=== PATIENT | male | born 1980 | race Caucasian/White ===

== ENCOUNTER → 2024-06-02 11:36 | Outpatient (REF) | payer BC, SELFPAY ==
[2024-06-02 13:05] LABS: % Basophils 0.8 % (0-2); % Eosinophils 1.3 % (0-6); % Immature Granulocytes 0.4 % (0-0.5); % Monocytes 11.3 % (1.7-9.3); % Neutrophils 54.2 % (42.2-75.2); Absolute Eosinophils 0.1 10^3/uL (0-0.7); Absolute Lymphocytes 1.5 10^3/uL (1.2-3.4); Absolute Monocytes 0.5 10^3/uL (0.1-0.6); Absolute Neutrophils 2.6 10^3/uL (1.4-6.5); Hematocrit 43.3 % (39.0-52.0); Hemoglobin 14.8 g/dL (13.0-18.0); Mean Corp Hgb Conc. 34.2 g/dL (33.0-37.0); Mean Corpuscular Hgb 29.7 pg (27.0-31.0); Mean Corpuscular Volume 86.8 fL (80.0-94.0); Mean Platelet Volume 10.7 fL (7.4-10.4); Nucleated Red Blood Cells % 0 % (-); Platelet Count 167 10^3/uL (130-400); Red Blood Cell Count 4.99 10^6/uL (4.70-6.10); Red Cell Dist. Width 12.6 % (11.5-14.5); White Blood Cell Count 4.8 10^3/uL (4.8-10.8)
[2024-06-02 13:45] LABS: ALT (SGPT) 33 U/L (0-50); AST (SGOT) 33 U/L (17-59); Albumin 4.7 g/dl (3.5-5.0); Alkaline Phosphatase 50 U/L (38-126); Blood Urea Nitrogen 13 mg/dl (9-20); Calcium 9.3 mg/dl (8.4-10.2); Carbon Dioxide 26 mmol/L (22-30); Chloride 98 mmol/L (98-107); Glucose 93 mg/dl (70-99); HDL Cholesterol 50 mg/dl; LDL Cholesterol, Calculated 134 mg/dl; Potassium 4.2 mmol/L (3.5-5.1); Sodium 135 mmol/L (135-145); Total Bilirubin 0.8 mg/dl (0.2-1.3); Total Cholesterol 202 mg/dl (50-199); Total Protein 7.6 g/dl (6.3-8.2); Triglyceride 92 mg/dl (10-149); Very Low Density Lipoprotein 18 mg/dl (0-30); eGFR > 60.00
== END ==
LOC: REG 11:36
PROVIDERS: ATTENDING PHYSICIAN Family Medicine
DX: Z00.00 Encounter for general adult medical examination without abnormal findings (principal)
CPT/HCPCS: 36415; 80053; 80061; 85025

== ENCOUNTER 2024-07-09 06:35 | Day surgery (SDC) | payer BC, SELFPAY | END 2024-07-09 08:45 | disposition home or self-care (01) | LOC: GI 06:35 | PROVIDERS: ATTENDING PHYSICIAN Student in an Organized Health Care Education/Training Program | DX: Z12.11 Encounter for screening for malignant neoplasm of colon (principal); K57.30 Diverticulosis of large intestine without perforation or abscess without bleeding; K64.0 First degree hemorrhoids; K63.5 Polyp of colon; K62.1 Rectal polyp | CPT/HCPCS: 45380; 88305 ==

== ENCOUNTER → 2025-05-23 09:52 | Outpatient (REF) | payer BC, SELFPAY ==
[2025-05-23 10:53] LABS: Hematocrit 46.1 % (39.0-52.0); Hemoglobin 15.3 g/dL (13.0-18.0); Mean Corp Hgb Conc. 33.2 g/dL (33.0-37.0); Mean Corpuscular Volume 85.8 fL (80.0-94.0); Nucleated Red Blood Cells % 0 % (-); Platelet Count 194 10^3/uL (130-400); Red Cell Dist. Width 12.2 % (11.5-14.5)
[2025-05-23 13:45] LABS: ALT (SGPT) 41 U/L (0-50); AST (SGOT) 33 U/L (17-59); Albumin 5.0 g/dl (3.5-5.0); Alkaline Phosphatase 63 U/L (38-126); Blood Urea Nitrogen 13 mg/dl (9-20); Calcium 9.7 mg/dl (8.4-10.2); Carbon Dioxide 26 mmol/L (22-30); Chloride 100 mmol/L (98-107); Glucose 91 mg/dl (70-99); HDL Cholesterol 51 mg/dl; LDL Cholesterol, Calculated 145 mg/dl; Potassium 4.4 mmol/L (3.5-5.1); Sodium 136 mmol/L (135-145); Total Protein 8.2 g/dl (6.3-8.2); Very Low Density Lipoprotein 14 mg/dl (0-30); eGFR > 60.00
== END ==
LOC: REG 09:52
PROVIDERS: ATTENDING PHYSICIAN Family Medicine
DX: Z00.00 Encounter for general adult medical examination without abnormal findings (principal)
CPT/HCPCS: 36415; 80053; 80061; 85025

== ENCOUNTER 2025-06-02 07:21 | Inpatient (IN) | payer BC, SELFPAY ==
[2025-06-02] VITALS (13 sets, daily range): BP systolic 116–136; BP diastolic 70–93; PULSE 74; BMI 28.6; BMI 27.3
[2025-06-02 00:51] LABS: Hematocrit 42.3 % (39.0-52.0); Hemoglobin 14.4 g/dL (13.0-18.0); Mean Corp Hgb Conc. 34.0 g/dL (33.0-37.0); Mean Corpuscular Volume 85.8 fL (80.0-94.0); Nucleated Red Blood Cells % 0 % (-); Platelet Count 190 10^3/uL (130-400); Red Cell Dist. Width 12.1 % (11.5-14.5)
[2025-06-02 01:13] LABS: ALT (SGPT) 34 U/L (0-50); AST (SGOT) 27 U/L (17-59); Albumin 4.5 g/dl (3.5-5.0); Alkaline Phosphatase 66 U/L (38-126); Blood Urea Nitrogen 16 mg/dl (9-20); Calcium 9.0 mg/dl (8.4-10.2); Carbon Dioxide 23 mmol/L (22-30); Chloride 104 mmol/L (98-107); Glucose 97 mg/dl (70-99); Potassium 3.8 mmol/L (3.5-5.1); Sodium 136 mmol/L (135-145); Total Protein 7.7 g/dl (6.3-8.2); eGFR > 60.00
[2025-06-02 01:24] LABS: Troponin I < 0.012 ng/ml
--- NOTE | 2025-06-02 05:59 | ED.GENMED ---
History of Present Illness
General
Chief Complaint: Breathing Problem
Source: patient and spouse
Time Seen by Provider: 06/02/25 03:23
History of Present Illness
History of Present Illness:
Note:
CHIEF COMPLAINT(S)
Right-sided chest pain and shortness of breath.
HISTORY OF PRESENT ILLNESS
The patient is a 44-year-old male with a past medical history significant for pulmonary embolism, presenting with a chief complaint of right-sided chest pain and shortness of breath. The patient describes the pain as a dry feeling that worsens with
inspiration or expiration and is located on the right side of the chest. The pain started in the mid-afternoon and persisted, intensifying when the patient attempted to lie down. The patient reports that the pain is different from the sharp,
stabbing pain experienced during previous pulmonary embolism episodes. He describes it as muscular-skeletal and feels tenderness when moving or reaching the arm.
The patient denies any recent injury or physical exertion and reports no history of swelling in the legs, although he notes minor swelling previously. He is not on any blood thinners presently but was on them for six months following a prior
pulmonary embolism. He has a history of hypertension for which he is taking amlodipine.
Additional diagnostic workup includes a chest X-ray performed earlier, which was unremarkable except for the noted chest pain. An electrocardiogram and cardiac enzyme tests showed normal results, and vital signs were stable with normal oxygen
saturation. A computed tomography scan of the chest is planned to rule out pulmonary embolism and assess other potential causes like pneumonia, pneumothorax, or pleuritic pain.
PAST MEDICAL AND SURGICAL HISTORY
- Pulmonary embolism
- Hypertension
- Obstructive sleep apnea (recently discontinued CPAP therapy)
EXTERNAL RECORDS REVIEWED
- Recent chest X-ray
- Electrocardiogram
- Cardiac enzyme tests
SOCIAL DETERMINANTS AFFECTING HEALTH
The patient has experienced significant sleep disruption due to obstructive sleep apnea.
MEDICATIONS
Amlodipine for hypertension
REVIEW OF SYSTEMS
- Respiratory: Shortness of breath, right-sided chest pain aggravated by breathing
PHYSICAL EXAM
General: Alert, no acute distress.
Skin: Warm, dry; no visible rashes.
Head: Normocephalic, atraumatic.
Neck: Supple, trachea midline.
Eyes, Ears, Nose, Mouth, and Throat: Oral mucosa moist.
Cardiovascular: Normal peripheral perfusion, heart rate regular, no edema.
Respiratory: Respirations are non-labored with clear lung auscultation.
Gastrointestinal: Abdomen nondistended.
Back: Normal range of motion, Normal alignment.
Musculoskeletal: Normal range of motion, normal strength. Tenderness noted in right chest wall with movement.
Neurological: Alert and oriented to person, place, time, and situation, no focal neurological deficit observed.
Psychiatric: Cooperative, appropriate mood & affect.
PROBLEM LIST
- Acute right-sided chest pain
- Shortness of breath
- History of Pulmonary embolism
PLAN
- Perform computed tomography scan of the chest to evaluate for pulmonary embolism and other potential causes such as pneumonia or pneumothorax.
- Continue monitoring vital signs and oxygen saturation.
- Review results of imaging and laboratory studies to guide further management.
DIFFERENTIAL DIAGNOSIS
The Differential Diagnosis includes, in no particular order and is not limited to:
1. Recurrent pulmonary embolism
2. Pleurisy
3. Pneumothorax
4. Musculoskeletal pain (costochondritis)
5. Pneumonia
6. Myocardial infarction
7. Angina
8. Heart failure
9. Pericarditis
10. Anxiety-related chest pain
Disposition:
SUMMARY OF ENCOUNTER
The patient is a 44-year-old male with a history of pulmonary embolism presenting to the emergency department with right-sided chest pain and mild shortness of breath. Laboratory tests including CBC, CMP, and troponin were normal, and an EKG showed
no acute ischemic changes. However, a chest CT scan revealed bilateral pulmonary emboli with mild right heart strain and a moderate clot burden. Despite appearing hemodynamically stable, given the clot burden, immediate anticoagulation with IV
heparin was initiated. A hospital stay is warranted for further management and monitoring.
DISPOSITION
Admit
EMERGENCY TREATMENTS ADMINISTERED
IV heparin was administered to manage the pulmonary emboli.
MANAGEMENT OF THE PATIENTS CARE WAS DISCUSSED WITH
Consultation with the hospitalist team was conducted for admission and further management.
PLAN
Initiate IV heparin therapy to manage the pulmonary emboli. Admit to the hospital for continuous monitoring, management of clot burden, and to prevent potential complications.
INDEPENDENT REVIEW OF LABS AND INTERPRETATION OF TESTS
- My independent review of CBC is normal.
- My independent review of CMP is normal.
- My independent review of troponin is negative.
- My independent interpretation of the EKG shows no acute ischemic changes.
- My independent interpretation of the chest CT reveals bilateral pulmonary emboli with mild right heart strain and a moderate clot burden.
MEDICATION RECONCILIATION
IV heparin was administered for anticoagulation purposes.
MEDICAL DECISION MAKING
- Complexity of Data Reviewed: Chronic conditions affecting care include pulmonary embolism. Differential diagnosis considered: recurrent pulmonary embolism, pleurisy, pneumothorax, musculoskeletal pain (costochondritis), pneumonia, myocardial
infarction, angina, heart failure, pericarditis, anxiety-related chest pain.
- Data:
Category 1
- My independent interpretation of the chest CT indicates bilateral pulmonary emboli with mild right heart strain.
- My independent review of external records included CBC, CMP, and EKG results.
Category 3
- Discussion of management with the hospitalist team for patient admission and further care.
- Risk: Due to the detection of bilateral pulmonary emboli with moderate clot burden, there was a significant risk of complications, necessitating immediate IV heparin administration and hospital admission for further management.
DIAGNOSIS
- Acute bilateral pulmonary embolism with mild right heart strain � ICD-10: I26.99
Past History
Past History
ED Past Medical History: Other (Sleep apnea, pulmonary embolism)
ED Past Surgical History: None
Patient has exhibited threatening behavior?: No
Social History
Tobacco: Non-smoker
Alcohol: None
Drug: None
Phy Exam
Physical Exam
Physical Exam:
.
Scores
Heart Failure Risk
Heart Failure Risk Score: Not Applicable
Course
Orders/Labs/Results
Orders:
Orders
06/02/25 00:20
ECG [Electrocardiogram (*1)] Urgent
Reason for Study: Shortness of Breath
06/02/25 00:21
EKG- Treatment ONCE
06/02/25 00:36
Complete Blood Count/With Diff Urgent
Comprehensive Metabolic Panel Urgent
Troponin I Urgent
06/02/25 01:20
CR Chest - 2 Views Urgent
Comment:
Reason For Exam: shortness of breath
06/02/25 03:37
CT Chest PE Study Urgent
Comment:
Reason For Exam: R cp, h/o PE
06/02/25 06:00
Heparin 8,100 units IV NOW STA
Heparin 90404 Units/250 ml 25,000 units in 250 ml IV PER PROTOCOL
Weight to be used for heparin protocol in kilograms (kg):: 101
Protocol:: DVT/PE
PTT Goal Range to be used:: PTT 73 to 111 seconds
Order type:: Initial
INITIAL Infusion Dose (UNITS/KG/hr) & then follow protocol:: 18 units/kg/hr
Infusion Dose in UNITS/hr & then follow protocol (UNITS/hr):: 1,800
INFUSION RATE in mL/hr & then follow protocol (mL/hr):: 18
For DVT/PE algorithm, re-bolus for low PTT?: Yes
PTT less than or equal to 64 seconds:: Re-bolus 80 units/kg (max 10,000units). Increase by 400 units/hr
(+ 4mL/hr)
PTT 64.1 to 72.9 seconds:: Re-bolus 40 units/kg (max 5,000 units). Increase by 200 units/hr
(+ 2mL/hr)
PTT 73 to 111 seconds:: Target Range. No change in rate.
PTT 111.1 to 130.9 seconds:: Decrease rate by 200 units/hr (- 2 mL/hr)
PTT 131 to 199.9 seconds:: HOLD for 1 hr. Then decrease by 300 units/hr (- 3mL/hr)
PTT greater than or equal to 200 seconds:: HOLD for 2 hrs & Notify Provider. Then decrease by 400 units/hr
(- 4mL/hr)
Lab follow-up:: Each change, PTT q6h until 2 consecutive are therapeutic. Then
PTT daily.
Nursing to Place Non Medication Order As Directed
Physician Order: PTT 6 hours after initial start of Heparin infusion
Above order entered?: Yes
06/02/25 06:04
Heparin 4,000 units IV PRN PRN
Heparin 8,100 units IV PRN PRN
06/02/25 06:14
PTT Urgent
Comment: Obtain baseline before beginning heparin infusion if not already collected
06/02/25 06:32
Ketorolac [Toradol] 15 mg IV NOW STA
06/02/25 12:15
PTT Urgent
Comment: heparin gtt
Abnormal Lab Results
06/02/25
00:36
Absolute Monos (auto) 0.8 H 10^3/uL
(0.1-0.6)
Immature Gran % 0.6 H %
(0-0.5)
Monocytes % 11.2 H %
(1.7-9.3)
06/02/25 00:36
06/02/25 00:36
Vital Signs
Initial and Last Documented VS:
Initial Vital Signs
Temp Pulse BP Pulse Ox
98.7 F 77 135/90 98
06/02/25 00:19 06/02/25 00:19 06/02/25 00:19 06/02/25 00:19
Last Documented Vital Signs
Temp Pulse Resp BP Pulse Ox
98.7 F 74 16 120/78 97
06/02/25 00:19 06/02/25 06:30 06/02/25 06:30 06/02/25 06:00 06/02/25 06:30
*Pulse Oximetry
SaO2: 97
Oxygen Mode of Delivery: Room air
Patient hypoxic: no
*Critical Care Note
Total Time (30-74mins, 75-104mins- exclusive of procedures): 35 min
Data Reviewed
Source: patient
ED Attending Note
-
Portions of this chart may have been created with voice recognition software.� Occasional wrong word or��sound alike� substitutions may have occurred due to the inherent limitations of voice recognition software.
Discharge Plan
Departure
Patient Disposition: Admit
Date of Disposition: 06/02/25
Time of Disposition: 05:59
Admit to: Telemetry
Presentation/result/management discussed w/ accepting MD/DO: Hospitalist
Discharge Problem:
Bilateral pulmonary embolism
Prescriptions:
No Action
No Current Medications
0
Referrals:
Abebe Jordan DO [Family Provider, Family Practice]
Interventions
Interventions:
*General Assessment Last Done: 06/02/25 00:21
*Neglect/Abuse Screening Last Done: 06/02/25 00:21
*ED COVID-19 Vaccine History Last Done: 06/02/25 03:39
*ED Influenza Vaccine History Last Done: 06/02/25 03:39
[facility] Fall Risk Assessment Tool Last Done: 06/02/25 03:39
*Risk Screen - Suicide (C-SSRS) Last Done: 06/02/25 00:21
ED- Cardiac Assessment Last Done: 06/02/25 03:39
ED- Pulmonary Assessment Last Done: 06/02/25 03:39
Discharge Date and Time
Print Language: KINYARWANDA
[2025-06-02] MEDS: HEPARIN 8100 UNITS IV (06:14)
[2025-06-02] MEDS: HEPARIN 25000 UNITS/250 ML IV ×2 (06:15→22:26)
[2025-06-02] MEDS: TORADOL 15 MG IV (06:38)
[2025-06-02 06:42] LABS: APTT 28.4 Sec (23.4-35.0)
--- NOTE | 2025-06-02 07:08 | HPS.HSE ---
Family Physician
-
Family Physician: Abebe Jordan
Chief Complaint
-
Chest Pain
History of Present Illness
Patient is a 44y M with PMH significant for hypertension and prior PE who presents to ED complaining of chest pain and SOB. Patient states that he developed R sided chest discomfort this afternoon. Pain was worse with deep breathing and became
significantly worse this evening when he lay down to sleep. Patient noted some SOB. He states that symptoms are similar to those he had with PE 3 years ago. He presented to the ED for further evaluation and CTA confirmed bilateral PEs.
Patient denies any recent travel, surgery or significant injury. His prior PE was attributed to COVID-19 infection which he had at the time. He states that he had hypercoagulable work-up done at that time which was unremarkable. He completed 6
months of Eliquis.
Patient does report some L foot pain over the past 3-4 days. He notes that he has been jogging / working out and his foot will bother him the following day./ Pain is mostly along the bottom / arch of the foot.
He went to Urgent Care early yesterday and had x-rays of the foot which were unremarkable.
Medical History
Past Medical History
Past Medical History: Reports Other
Additional Past Medical History:
Hypertension
Pulmonary Embolism
BRIELLE on CPAP
Past Surgical History: Reports Other
Additional Past Surgical History:
Septoplasty
Social History
Tobacco: Non-smoker
Alcohol: None
Drug: None
Family History
Family History: Other (Brother: Schizophrenia, Sudden attributed to asthma / pneumonia Mother: CJD, Bladder Cancer Father: Skin Cancer, BRIELLE)
Allergies / Home Medications
Allergies reflects when Allergies were last updated in [employer].
Home Medications with original date entered in [employer]
Allergy/Medication List:
Allergies
Allergy/AdvReac Type Severity Reaction Status Date / Time
prochlorperazine (From Allergy Mild Tongue Verified 03/07/22 22:01
Compazine) Swelling
Home Medications
amlodipine 5 mg-benazepril 10 mg capsule 1 cap PO DAILY 06/02/25
Review of Systems
-
History Source: Patient
A 12 point ROS was completed and negative except as noted: Yes
Constitutional: Denies Fever or Chills
Respiratory: Reports Trouble Breathing; Denies Cough
Cardiac: Reports Chest Pain; Denies Diaphoresis, Palpitations or Syncope
Abdomen/GI: Denies Abdominal Pain, Nausea, Vomiting or Diarrhea
: Denies Dysuria or Frequency
Musculoskeletal: Reports Joint Pain (L foot pain.); Denies Edema
Neurological: Denies Dizzy or Headache
Psych: Denies Depression or Anxiety
Physical Exam
Vital Signs
Vital Signs
Temp Pulse Resp BP Pulse Ox
98.7 F 75 33 120/78 97
06/02/25 00:19 06/02/25 06:45 06/02/25 06:45 06/02/25 06:00 06/02/25 06:45
Physical Exam
General: Other (44y M in no acute distress.)
HEENT: Moist mucous membranes and PERRLA
Respiratory: Other (Few coarse breath sounds at R base. Otherwise clear. No wheezing.)
Cardiac: S1/S2 and Regular Rhythm; No Murmur
GI: Soft, Non Tender, Non Distended and Normal Bowel Sounds
Musculoskeletal: No Clubbing, No Cyanosis and No Edema
Neuro: AO x 3
Laboratory Results
-
06/02/25 00:36
06/02/25 00:36
Laboratory Results
APTT 28.4 Sec (23.4-35.0) 06/02/25 06:14
Total Bilirubin 0.8 mg/dl (0.2-1.3) 06/02/25 00:36
AST 27 U/L (17-59) 06/02/25 00:36
ALT 34 U/L (0-50) 06/02/25 00:36
Alkaline Phosphatase 66 U/L (38-126) 06/02/25 00:36
Troponin I < 0.012 ng/ml 06/02/25 00:36
Impression/Plan
-
A/P: Patient is a 44y M with PMH significant for hypertension and prior PE who presents to ED complaining of chest pain and SOB.
Bilateral Pulmonary Emboli
RLL Pulmonary Infarct
- Admit for further evaluation and treatment.
- IV heparin x 24-48 hours.
- Check Echo.
- Supplemental O2 if needed.
- Pain control, supportive care.
- Check LE dopplers.
- Pulmonary evaluation for additional recommendations.
- Given prior history, patient will likely now require lifelong anticoagulation.
Benign Hypertension
- Hold amlodipine-benazepril acutely.
BRIELLE
- Stable. Continue nightly PAP therapy.
DVT Prophylaxis: On IV Heparin
Code Status: Full
--- NOTE | 2025-06-02 07:13 | W.PN.HOSP.TC ---
Addendum entered and electronically signed by Keila Cintron MD 06/03/25 09:33:
Essential HTN
-SBP high 130's this morning - OK to resume BP meds at home
Original Note:
Today's Communication/Plan
-
see a/p
Assessment / Plan
Assessment / Plan
Physical Exam
General: no acute distress, appears comfortable at this time.
HEENT: Moist mucous membranes and PERRLA
Respiratory: clear to auscultation b/l
Cardiac: S1/S2 and Regular Rhythm; No Murmur
GI: Soft, Non Tender, Non Distended and Normal Bowel Sounds
Musculoskeletal: No Clubbing, No Cyanosis and No Edema
Neuro: AO x 3 conversant coherent
Psych: Calm
A/P: Patient is a 44y M with PMH significant for hypertension and prior PE who presents to ED complaining of chest pain and SOB.
Bilateral Pulmonary Emboli
RLL Pulmonary Infarct
LLE DVT
Hepatosplenomegaly w/ hepatic steatosis as noted on CT
- cont hep gtt
- ECHO appreciated preserved EF 65% mild valve abn's
- stable respiratory status on room air
- Pain control
- Venous Duplex positive for LLE DVT
- Pulmonary Hematology eval
- Given prior history, patient will likely now require lifelong anticoagulation.
Benign Hypertension
- Hold amlodipine-benazepril acutely
- BP stable off
BRIELLE
- Stable. Continue nightly PAP therapy.
DVT Prophylaxis: On IV Heparin
Code Status: Full
I spent a total of 40 minutes with the patient or on the floor. More than 50% of this time involved counseling and coordination of care.
Anticipated Discharge: 24 - 48 hours
Subjective/Interval History
-
Date of Service: June 02, 2025
No acute distress, sitting up comfortably in bed. Overall stable respiratory status on room air.
Objective Data
-
Labs:
Laboratory Results
06/02/25 06/02/25 06/02/25
00:36 06:14 12:15
WBC 7.2
Hgb 14.4
Hct 42.3
Plt Count 190
APTT 28.4 Pending
Sodium 136
Potassium 3.8
Chloride 104
Carbon Dioxide 23
BUN 16
Creatinine 0.8
Glucose 97
Calcium 9.0
Total Bilirubin 0.8
AST 27
ALT 34
Alkaline Phosphatase 66
Vital Signs:
Vital Signs
Temp Pulse Resp BP Pulse Ox
98.7 F 78 20 136/91 96
06/02/25 00:19 06/02/25 07:00 06/02/25 07:00 06/02/25 07:00 06/02/25 07:00
--- NOTE | 2025-06-02 10:01 | CON.PUL ---
Consultation
Consultation Request
Date/Time Consultation Requested: 06/02/2025
Date/Time Consultation Performed: 06/02/2025
Requesting Provider: Dr. Ness
Performing Provider: Dr. Rasheed
Reason for Consultation: Acute PE
Medical History
-
Chief Complaint: SOB + chest pain
History of Present Illness:
44-year-old male with a past medical history of an acute PE (March 2022), BRIELLE on CPAP, and hypertension who presents with shortness of breath and pain during breathing. Patient has a history of a acute PE in March 2022, that was thought to be
provoked at the time from COVID-19. No DVT at that time. Sx started on the day of admission. he states the symptoms that he is having are similar to his prior PE in 2021. CTA chest confirmed bilateral pulmonary embolism with suspected right
lower lobe pulmonary infarct. Patient denies any recent travel, trauma or significant injury. He has had some left sided foot pain for the past 3-4 days. Patient had reportedly gone to urgent care 1 day [facility] and x-rays of his foot were reportedly
unremarkable. Patient started on heparin drip, admitted to the hospitalist service and pulmonary service now consulted for additional management/recommendations.
Past Medical History
Past Medical History: Other (see assessment)
Past Surgical History: Other (see assessment)
Social History
Tobacco: Non-smoker
Alcohol: None
Drug: None
Family History
Family History: Cancer (Mother: bladder cancer; Father: Skin cancer) and Other (Brother: Schizophrenia/asthma; Father: BRIELLE)
Allergies / Home Medications
Allergies
Allergy/AdvReac Type Severity Reaction Status Date / Time
prochlorperazine (From Allergy Mild Tongue Verified 03/07/22 22:01
Compazine) Swelling
Home Medications
�Medication �Instructions �Recorded �Confirmed �Last Taken �Type
amlodipine 5 mg-benazepril 10 mg 1 cap PO DAILY 06/02/25 06/02/25 06/01/25 History
capsule
Review of Systems
-
History Source: Patient
All other systems: Negative unless noted
Vitals / Labs / Diagnostic Testing
Vital Signs
Temp Pulse Resp BP Pulse Ox
98.7 F 78 20 136/91 96
06/02/25 00:19 06/02/25 07:00 06/02/25 07:00 06/02/25 07:00 06/02/25 07:00
Lab Data
06/02/25 00:36
06/02/25 00:36
Laboratory Results
06/02/25
06:14
APTT 28.4
Diagnostic Testing:
Physical Exam
-
HEENT: Normocephalic and Anicteric
Cardiovascular: S1/S2 and Peripheral Edema (n)
Respiratory: Wheeze (n), Rales ( right base), Rhonchi (n) and Non-Labored Respirations
GI: Soft, Non Distended and Non Tender
Neurology: Awake, Alert and Tremors (n)
Skin: Warm and Good Color
General: Respiratory Distress (n), Comfortable, Fever (n) and Chills (n)
Assessment
-
Assessment: 44-year-old male with a past medical history of an acute PE (March 2022), BRIELLE on CPAP, and hypertension who presents with shortness of breath and pain during breathing. Patient has a history of a acute PE in March 2022, that was
thought to be provoked at the time from COVID-19. No DVT at that time. Sx started on the day of admission. he states the symptoms that he is having are similar to his prior PE in 2021. CTA chest confirmed bilateral pulmonary embolism with
suspected right lower lobe pulmonary infarct. Patient denies any recent travel, trauma or significant injury. He has had some left sided foot pain for the past 3-4 days. Patient had reportedly gone to urgent care 1 day [facility] and x-rays of his foot
were reportedly unremarkable. Patient started on heparin drip, admitted to the hospitalist service and pulmonary service now consulted for additional management/recommendations.
Conditions present [facility]:
BRIELLE, dx at [facility] in 2007, then followed at [facility] afterwards, CPAP 6 cwp s O2, reports nightly compliance
COVID vaccinated and boosted (Pfizer, boost May 2021)
Breakthrough COVID illness (fever, cough sore throat, dyspnea) since 02-22, home positive test 02-23, started/completed nirmatrelvir/ritonavir (paxlovid) 5 d course with resolution of symptoms and negative home testing 5 days [facility]
Nasal septoplasty 2017
[place] teeth removal x4 at end of HS
LLNS
Pulmonary embolism (March 2022)
Impression:
#Acute submassive bilateral pulmonary embolism with RV strain
#Left lower extremity occlusive DVT involving posterior tibial vein
#BRIELLE on CPAP
#History of COVID-19
#History of acute PE (March 2022) s/p 3 months of AC � PE deemed provoked at the time in setting of COVID-19 infection
Plan:
- Continue with systemic parenteral anticoagulation with heparin drip
- Check echo
- Bedrest for the first 24 hours after being therapeutic on heparin drip
- Considering that this is the patient's second VTE event, believe that he will require lifelong anticoagulation
- Recommend outpatient hematology evaluation to discuss duration of AC needed + possible hypercoagulable workup
- Outpatient pulmonary office follow-up will be arranged for full PFTs -he already follows with us in the office, saw THANIA Bernabe in August 2023 for sleep apnea
- Maintain SpO2 >90-94%, using supplemental O2 as needed
- prn nebulized bronchodilators - patient not currently bronchospastic
- Replete electrolytes with K>4, Mg>2
- Maintain euglycemia with goal BG >100mg/dL and <180mg/dL
- Trend H/H and transfuse if needed to keep Hb >7-8g/dL; keep plt>10-20k, unless there is concern for bleeding then keep plt>50k
- Incentive spirometer encouraged 10x per hour for at least 4 hours a day
- DVT ppx
Pulmonary service will continue to follow along.
Total time spent today was 58 minute for this encounter. Time includes reviewing laboratory tests/imaging results, reviewing pertinent medical records, obtaining and reviewing medical history, performing an appropriate physical exam, ordering
medications, tests and procedures. Time also includes documentation of this encounter, coordinating patient care and communicating with other healthcare professionals. Total time does not include separately billed tests or procedures performed on
this date of service.
Data:
CTA chest 06/02/2025:
Findings compatible with multiple small bilateral segmental and subsegmental acute pulmonary emboli.
Straightening of the intraventricular septum which could represent a mild degree of right heart strain. Consider echocardiogram.
Patchy bilateral lower lobe opacities most likely representing subsegmental atelectasis. Cannot exclude developing right lower lobe pulmonary infarct.
Incompletely included on this study findings suggesting hepatosplenomegaly with hepatic steatosis.
Bilateral lower extremity duplex US 06/02/2025:
No evidence of deep venous thrombosis of the right lower extremity.
Occlusive acute thrombus in the left posterior tibial vein.
--- NOTE | 2025-06-02 12:59 | EDCM ---
Reviewed chart and met with pt bedside in ED. Lives with his in 1 story home, [address].
Independent in ADLs, personal care and ambulation at baseline. Has CPAP.
PMH includes Pulmonary embolism, HTN and Sleep apnea.
Currently on Heparin drip.
Confirms prescription coverage.
No hx HH or SNF
PCP: Abebe Jordan
Pharmacy: [facility]
Anticipate discharge home, no needs. CM will continue to follow.
[2025-06-02 13:45] LABS: APTT 188.7 Sec (23.4-35.0)
--- NOTE | 2025-06-02 14:47 | CON.ONC ---
Consultation
-
Date Consultation Requested: 06/02/25
Date Consultation Performed: 06/02/25
Requesting Provider: Dr. Dominick Ortiz
Performing Provider: Dr. Regina Rg
Reason for Consultation: pulmonary emboli
Impression
Impression
multiple small bilateral segmental and subsegmental acute pulmonary emboli
Occlusive acute thrombus in the left posterior tibial vein
homozygous MTHFR homozygous variant
Plan
Plan
Lifelong DOAC recommended
f/u echo
check B2 glycoprotein, anticardiolipin panel, and lupus anticoagulant to complete thrombophilia evaluation
check homocystine level, if elevated start folic acid
OP follow up will be arranged upon discharge
Patient History
History of Present Illness
42yo M who presented with chest pain and SOB. He reports acute onset right sided chest discomfort that started yesterday afternoon. He noted that symptoms were similar to his pulmonary emboli 3 years ago. The pain increased with lying down and with
deep breathing. His prior pulmonary was thought to be provoked by COVID. He completed 6 months of apixaban. His prior thrombophilia evaluation in 2021 was negative for factor VIII activity, FVL, antithrombin 3, protein S deficiency, protein C
deficiency, prothrombin gene, and anticardiolipin IgG. He did have a homozygous MTHFR homozygous variant. His admission CTA was diagnostic for multiple small bilateral segmental and subsegmental acute pulmonary emboli with possible RV strain. HIs LE
US was diagnostic for occlusive acute thrombus in the left posterior tibial vein. His CBC and CMP showed no significant abnormalities. He denies any provoking factors for VTE including prolonged immobility, airtravel, hormone use, surgery, or
injury. He denies any family hx of VTE. He has been admitted and started on a heparin gtt.
Afebrile, no hypoxia or hypotension.
Past-Medical/Surgical History
PMH HTN, pulmonary emboli, BRIELLE
PSH septoplasty
Social non smoker, denies significant ETOH, or recreational drug use.
Family mother bladder cancer, father skin cancer
Patient Medication
�Medication �Instructions �Recorded �Confirmed �Last Taken �Type
amlodipine 5 mg-benazepril 10 mg 1 cap PO DAILY 06/02/25 06/02/25 06/01/25 History
capsule
Active Medications
Generic Name Dose Route Start Last Admin
Trade Name Freq PRN Reason Stop Dose Admin
Acetaminophen 650 mg 06/02/25 14:28
Acetaminophen 325 Mg Tablet PO 06/30/25 14:27
Q4HPRN PRN
Mild Pain / Temp > 101
Heparin Sodium 8,100 units 06/02/25 06:04
Heparin 80 Units/Kg Iv Rebolus IV 06/30/25 06:03
PRN PRN
PTT < OR = 64 seconds
Heparin Sodium 4,000 units 06/02/25 06:04
Heparin 40 Units/Kg Iv Rebolus IV 06/30/25 06:03
PRN PRN
PTT = 64.1 to 72.9 seconds
Hydromorphone HCl 0.5 mg 06/02/25 14:28
Hydromorphone 0.5 Mg/0.5 Ml Syringe IV 06/16/25 14:27
Q4HPRN PRN
Severe Pain
Heparin Sodium 25,000 units in 250 mls @ 0 mls/hr 06/02/25 06:00 06/02/25 06:15
Heparin 23771 Units/250 Ml IV 250 mls
PER PROTOCOL TONYA Administration
Protocol
Per Protocol
Review of Systems
-
ROS is notable for HPI, otherwise negative
Physical Exam
-
General: No Apparent Distress
HEENT: Negative Jaundice
Pulmonary: Other (unlabored)
GI: Soft
Extremities: Pulses Present
Neurology: Non Focal
Skin: Warm
Psych: Calm
Labs
Lab Results
WBC 7.2 10^3/uL (4.8-10.8) 06/02/25 00:36
RBC 4.93 10^6/uL (4.70-6.10) 06/02/25 00:36
Hgb 14.4 g/dL (13.0-18.0) 06/02/25 00:36
Hct 42.3 % (39.0-52.0) 06/02/25 00:36
MCV 85.8 fL (80.0-94.0) 06/02/25 00:36
MCH 29.2 pg (27.0-31.0) 06/02/25:36
MCHC 34.0 g/dL (33.0-37.0) 06/02/25 00:36
RDW 12.1 % (11.5-14.5) 06/02/25 00:36
Plt Count 190 10^3/uL (130-400) 06/02/25:36
MPV 10.3 fL (7.4-10.4) 06/02/25 00:36
Abs Immat Gran (auto) 0.0 10^3/uL (0-0.05) 06/02/25:36
Absolute Neuts (auto) 4.4 10^3/uL (1.4-6.5) 06/02/25 00:36
Absolute Lymphs (auto) 1.8 10^3/uL (1.2-3.4) 06/02/25 00:36
Absolute Monos (auto) 0.8 10^3/uL (0.1-0.6) H 06/02/25 00:36
Absolute Eos (auto) 0.1 10^3/uL (0-0.7) 06/02/25 00:36
Absolute Basos (auto) 0.0 10^3/uL (0-0.2) 06/02/25 00:36
Immature Gran % 0.6 % (0-0.5) H 06/02/25 00:36
Neutrophils % 60.7 % (42.2-75.2) 06/02/25 00:36
Lymphocytes % 25.2 % (20.5-51.1) 06/02/25 00:36
Monocytes % 11.2 % (1.7-9.3) H 06/02/25 00:36
Eosinophils % 1.7 % (0-6) 06/02/25 00:36
Basophils % 0.6 % (0-2) 06/02/25 00:36
Creatinine 0.8 mg/dL (0.7-1.3) 06/02/25 00:36
Vital Signs
Vital Signs
Temp Pulse Resp BP Pulse Ox
98.4 F 85 14 120/81 96
06/02/25 14:42 06/02/25 14:42 06/02/25 14:42 06/02/25 14:42 06/02/25 14:45
[2025-06-02 15:45] LABS: COVID-19 Antigen Negative (Negative)
[2025-06-02] MEDS: TYLENOL 650 MG PO (18:41)
[2025-06-02 22:07] LABS: APTT 95.9 Sec (23.4-35.0)
[2025-06-03 03:00] VITALS: BP 111/73
[2025-06-03 04:34] VITALS: BMI 27.0
[2025-06-03 04:44] LABS: APTT 111.2 Sec (23.4-35.0); Hematocrit 42.0 % (39.0-52.0); Hemoglobin 14.2 g/dL (13.0-18.0); Mean Corp Hgb Conc. 33.8 g/dL (33.0-37.0); Mean Corpuscular Volume 86.4 fL (80.0-94.0); Nucleated Red Blood Cells % 0 % (-); Platelet Count 164 10^3/uL (130-400); Red Cell Dist. Width 12.0 % (11.5-14.5)
[2025-06-03 04:56] LABS: Blood Urea Nitrogen 12 mg/dl (9-20); Calcium 8.8 mg/dl (8.4-10.2); Carbon Dioxide 24 mmol/L (22-30); Chloride 107 mmol/L (98-107); Estimated Creatinine Clearance > 125 ml/min; Glucose 96 mg/dl (70-99); Potassium 4.1 mmol/L (3.5-5.1); Sodium 136 mmol/L (135-145); eGFR > 60.00
[2025-06-03 07:46] VITALS: BP 132/74
--- NOTE | 2025-06-03 09:08 | W.PN.HOSP.TC ---
Today's Communication/Plan
-
expect DC later today
Assessment / Plan
Assessment / Plan
Physical Exam
General: no acute distress, appears comfortable at this time.
HEENT: Moist mucous membranes and PERRLA
Respiratory: clear to auscultation b/l
Cardiac: S1/S2 and Regular Rhythm; No Murmur
GI: Soft, Non Tender, Non Distended and Normal Bowel Sounds
Musculoskeletal: No Clubbing, No Cyanosis and No Edema
Neuro: AO x 3 conversant coherent
Psych: Calm
A/P: Patient is a 44y M with PMH significant for hypertension and prior PE who presents to ED complaining of chest pain and SOB.
TTE
SUMMARY
1. Normal left ventricular size, wall thickness, and systolic function. EF 65%. No regional wall motion abnormality. Normal diastolic function.
2. Normal right ventricular size and function.
3. Mild mitral regurgitation.
4. Mild tricuspid regurgitation with estimated pulmonary artery pressure of 29 mmHg assuming a right atrial pressure of 8 mmHg.
5. When compared to prior study on 03/08/2022, IVC does not collapse but otherwise no significant changes.
Chest CT
IMPRESSION:
Findings compatible with multiple small bilateral segmental and subsegmental acute pulmonary emboli.
Straightening of the intraventricular septum which could represent a mild degree of right heart strain. Consider echocardiogram.
Patchy bilateral lower lobe opacities most likely representing subsegmental atelectasis. Cannot exclude developing right lower lobe pulmonary infarct.
Incompletely included on this study findings suggesting hepatosplenomegaly with hepatic steatosis.
LE US:
IMPRESSION: No evidence of deep venous thrombosis of the right lower extremity.
Occlusive acute thrombus in the left posterior tibial vein.
Bilateral Pulmonary Emboli
RLL Pulmonary Infarct
LLE DVT
Hepatosplenomegaly w/ hepatic steatosis as noted on CT
- Venous Duplex positive for LLE DVT
- s/p Hepatin gtt - transition to oral Eliquis, patient will need lifelong AC
- ECHO appreciated preserved EF 65% mild valve abn's; no RV strain
- stable respiratory status on room air
- Pulmonary Hematology eval
Benign Hypertension
- Hold amlodipine-benazepril acutely
- BP stable off
BRIELLE
- Stable. Continue nightly PAP therapy.
DVT Prophylaxis: Eliquis
Code Status: Full
I spent a total of 40 minutes with the patient or on the floor. More than 50% of this time involved counseling and coordination of care.
Anticipated Discharge: Within 24 hours
Subjective/Interval History
-
Date of Service: June 03, 2025
feeling well
mild right chest pain controlled with tylenol
has not required oxygen
feels ready for discharge
Objective Data
-
Labs:
Laboratory Results
06/02/25 06/03/25 06/03/25
21:45 04:07 11:10
WBC 5.4
Hgb 14.2
Hct 42.0
Plt Count 164
APTT 95.9 H 111.2 H Pending
Sodium 136
Potassium 4.1
Chloride 107
Carbon Dioxide 24
BUN 12
Creatinine 0.8
Glucose 96
Calcium 8.8
Vital Signs:
Vital Signs
Temp Pulse Resp BP Pulse Ox
97.8 F 64 17 132/74 97
06/03/25 07:46 06/03/25 07:46 06/03/25 07:46 06/03/25 07:46 06/03/25 07:46
I&O
06/02/25 06/03/25 06/04/25
06:59 06:59 06:59
Intake Total 480 / 480
Balance 480 / 480
Review of Systems
-
History Source: Patient
All other systems: Reviewed and negative
Physical Exam
-
General: Comfortable and Conversant
HEENT: PERRLA
Respiratory: Rales; Negative Wheezes
Cardiac: S1/S2
GI: Soft and Nontender
Musculoskeletal: No Edema
Skin: Warm and Dry; Negative Rash
Neuro: AO x 3
Psych: Calm
Data Reviewed
-
Diagnostic Radiology: Report Reviewed by me
Labs: Labs Reviewed by me
[2025-06-03] MEDS: ELIQUIS 10 MG PO (09:36)
--- NOTE | 2025-06-03 10:13 | W.PN.PUL3 ---
Today's Communication / Plan
-
Eliquis, starting with loading dose for 7 days
Outpatient hematology follow-up
Hypercoagulable workup collected and is pending
Okay for patient to get up OOB and ambulate given that it has been >24 hours since he was therapeutic on heparin drip
Outpatient repeat left lower extremity duplex to follow-up status of DVT (occlusive thrombus in left PT vein); outpatient PFTs
Patient is stable for discharge home. Pulmonary office follow-up will be arranged. No additional recommendations at this time. Pulmonary service will now sign off. Please reconsult if there are any additional questions/concerns, or if patient's
respiratory status deteriorates.
Assessment
-
Assessment: 44-year-old male with a past medical history of an acute PE (March 2022), BRIELLE on CPAP, and hypertension who presents with shortness of breath and pain during breathing. Patient has a history of a acute PE in March 2022, that was
thought to be provoked at the time from COVID-19. No DVT at that time. Sx started on the day of admission. he states the symptoms that he is having are similar to his prior PE in 2021. CTA chest confirmed bilateral pulmonary embolism with
suspected right lower lobe pulmonary infarct. Patient denies any recent travel, trauma or significant injury. He has had some left sided foot pain for the past 3-4 days. Patient had reportedly gone to urgent care 1 day [facility] and x-rays of his foot
were reportedly unremarkable. Patient started on heparin drip, admitted to the hospitalist service and pulmonary service now consulted for additional management/recommendations.
Conditions present [facility]:
BRIELLE, dx at [facility] in 2007, then followed at [facility] afterwards, CPAP 6 cwp s O2, reports nightly compliance
COVID vaccinated and boosted (Pfizer, boost May 2021)
Breakthrough COVID illness (fever, cough sore throat, dyspnea) since 02-22, home positive test 02-23, started/completed nirmatrelvir/ritonavir (paxlovid) 5 d course with resolution of symptoms and negative home testing 5 days [facility]
Nasal septoplasty 2017
[place] teeth removal x4 at end of HS
LLNS
Pulmonary embolism (March 2022)
Impression:
#Acute submassive bilateral pulmonary embolism with RV strain
#Left lower extremity occlusive DVT involving posterior tibial vein
#BRIELLE on CPAP
#History of COVID-19
#History of acute PE (March 2022) s/p 3 months of AC � PE deemed provoked at the time in setting of COVID-19 infection
Plan:
- Continue with systemic anticoagulation - -> TRX from heparin drip to Eliquis, starting with loading dose 10mg BID x 7 days, then 5mg BID thereafter
- Echo shows normal biventricular size and systolic function with normal RA size, with normal PASP at 29 mmHg with mild TR
- Given that it has been >24 hours, no longer needs to be on bedrest, and he can get up OOB and ambulate as tolerated
- Considering that this is the patient's second VTE event, believe that he will require lifelong anticoagulation - defer this to Hematology
- Hematology saw the patient; hypercoagulable workup has been ordered and is pending; recommend continued outpatient office hematology follow up to discuss duration of AC needed
- Outpatient pulmonary office follow-up will be arranged for full PFTs -he already follows with us in the office, saw THANIA Bernabe in August 2023 for sleep apnea, and I will arrange for repeat follow up
- Maintain SpO2 >90-94%, using supplemental O2 as needed (currently on RA as of 06/03)
- prn nebulized bronchodilators - patient not currently bronchospastic
- CPAP with sleep
- Replete electrolytes with K>4, Mg>2
- Maintain euglycemia with goal BG >100mg/dL and <180mg/dL
- Trend H/H and transfuse if needed to keep Hb >7-8g/dL; keep plt>10-20k, unless there is concern for bleeding then keep plt>50k
- Incentive spirometer encouraged 10x per hour for at least 4 hours a day
- DVT ppx
Patient is stable for discharge home. As stated above, pulmonary office follow-up will be arranged. No additional recommendations at this time. Pulmonary service will now sign off. Thank you for allowing us to be involved in the care of this
patient. Please reconsult if there are any additional questions/concerns, or if patient's respiratory status deteriorates.
Data:
CTA chest 06/02/2025:
Findings compatible with multiple small bilateral segmental and subsegmental acute pulmonary emboli.
Straightening of the intraventricular septum which could represent a mild degree of right heart strain. Consider echocardiogram.
Patchy bilateral lower lobe opacities most likely representing subsegmental atelectasis. Cannot exclude developing right lower lobe pulmonary infarct.
Incompletely included on this study findings suggesting hepatosplenomegaly with hepatic steatosis.
Bilateral lower extremity duplex US 06/02/2025:
No evidence of deep venous thrombosis of the right lower extremity.
Occlusive acute thrombus in the left posterior tibial vein.
TTE 06/02/2025:
1. Normal left ventricular size, wall thickness, and systolic function. EF 65%. No regional wall motion abnormality. Normal diastolic function.
2. Normal right ventricular size and function.
3. Mild mitral regurgitation.
4. Mild tricuspid regurgitation with estimated pulmonary artery pressure of 29 mmHg assuming a right atrial pressure of 8 mmHg.
5. When compared to prior study on 03/08/2022, IVC does not collapse but otherwise no significant changes.
Total time spent today was 39 minute for this encounter. Time includes reviewing laboratory tests/imaging results, reviewing pertinent medical records, obtaining and reviewing medical history, performing an appropriate physical exam, ordering
medications, tests and procedures. Time also includes documentation of this encounter, coordinating patient care and communicating with other healthcare professionals. Total time does not include separately billed tests or procedures performed on
this date of service.
Subjective Data
-
Date of Service:
Date of Service: June 03, 2025
Chief Complaint: Pulmonary Follow Up
Subjective:
Patient seen today at bedside. Afebrile overnight. at bedside, very concerned about him being back in the hospital and general with a DVT + PE. Patient feels well however. Currently on room air breathing comfortably. Still has some
right-sided chest pain + left lower extremity/foot pain.
Review of Systems
General: Other (Negative unless mentioned above)
Objective Data
Data Reviewed
Vital Signs / I&O / Oxygen:
Vital Signs
Temp Pulse Resp BP Pulse Ox
97.8 F 64 17 132/74 97
06/03/25 07:46 06/03/25 07:46 06/03/25 07:46 06/03/25 07:46 06/03/25 07:46
Intake and Output
06/02/25 06/03/25 06/04/25
06:59 06:59 06:59
Intake Total 480 / 480
Balance 480 / 480
SaO2 97
Physical Exam
General: Respiratory Distress (n), Comfortable and Pain (Left lower extremity/ankle + right sided chest)
HEENT: Normocephalic and Anicteric
Cardiovascular: S1-S2 and Peripheral Edema (n)
Respiratory: Wheeze (n), Crackles (n), Rhonchi (n) and Non-Labored Respirations
GI: Soft, Non Distended and Non Tender
Neurology: Awake, Alert, Oriented and Tremors (n)
Skin: Warm and Dry
Labs/Micro/Reports
Lab Data
06/03/25 04:07
06/03/25 04:07
Laboratory Results
06/02/25 06/02/25 06/03/25
13:04 21:45 04:07
APTT 188.7 H* 95.9 H 111.2 H
06/03/25
11:10
APTT Cancelled
[2025-06-03] MEDS: TYLENOL 650 MG PO (11:16)
[2025-06-03 11:29] VITALS: BP 130/71
--- NOTE | 2025-06-03 11:52 | W.DS.TRANS ---
DC Summary - Senior Database Engineer
-
Discharge Instructions:
Discharge Diagnosis/Procedures pulmonary embolism, deep vein thrombosis
Diet Regular
Driving Restrictions As prior to admission
Bathing Restrictions None
Instructions:
Stand-Alone Forms:
Changes to Home Medications: Yes
Discharge Medications:
DC Medications w/original date entered in [employer]
amlodipine 5 mg-benazepril 10 mg capsule 1 cap PO DAILY 06/02/25
apixaban 5 mg tablet (Eliquis) 5 mg PO BID #70 tabs 06/03/25
Home Medication Changes
New start Eliquis:
Take 10mg twice a day through 06/09/25; on 06/10/25 start 5mg twice a day
Pending Results: Yes
Additional Pending Results:
anticoag work-up; homocyteine level
--- NOTE | 2025-06-03 12:37 | W.DCSUMMARY ---
Discharge Summary
Discharge Data
Date of Admission: 06/02/25
Date of Discharge: 06/03/25
-
Pending Results: Yes
Additional Pending Results:
Hypercoagulable work-up: homocysteine, antiphospholipid panel,
Hospital Course
Discharging Physician : Dr. Keila Cintron
Disposition : Home
Primary care physician : Dr. Abebe Jordan
Principal Discharge diagnosis : pulmonary embolism, deep vein thrombosis
Hospital Course :
Mr. Rubens Jacobo is a 44 yo man with hx essential HTN, PE presents to the ER complaining of LLE swelling, chest pain and shortness of breath.
Triage vitals stable. Labs without leukocytosis, Hg 14.4, Cr 0.8. CTA with finding of bilateral PE. He was started on an IV Heparin gtt and admitted to medicine with Pulmonary and Hematology consulting. TTE without e/o RV strain. He remained
off of oxygen with stable blood pressure. Chest pain controlled by Tylenol. He is transitioned to Eliquis on discharge.
Patient had a PE 3 years ago. His prior thrombophilia evaluation in 2021 was negative for factor VIII activity, FVL, antithrombin 3, protein S deficiency, protein C deficiency, prothrombin gene, and anticardiolipin IgG. He did have a homozygous
MTHFR homozygous variant. Currently denied provoking factors such as prolonged immobility or hormone use. Given clot recurrence, lifelong DOAC recommended. At time of discharge homocysteine level, B2 glycoprotein, anticardiolipin panel and lupus
anticoagulant testing pending. He will follow up with Hematology as outpatient.
Time spent on discharge was 32 minutes.
Important imaging findings :
Chest CT 06/02/25
IMPRESSION:
Findings compatible with multiple small bilateral segmental and subsegmental acute pulmonary emboli.
Straightening of the intraventricular septum which could represent a mild degree of right heart strain. Consider echocardiogram.
Patchy bilateral lower lobe opacities most likely representing subsegmental atelectasis. Cannot exclude developing right lower lobe pulmonary infarct.
Incompletely included on this study findings suggesting hepatosplenomegaly with hepatic steatosis.
LE US
IMPRESSION: No evidence of deep venous thrombosis of the right lower extremity.
Occlusive acute thrombus in the left posterior tibial vein.
Procedure findings :
Discharge Plan
-
Patient Disposition: Home (Routine Discharge)
Discharge Diagnosis/Procedures: pulmonary embolism, deep vein thrombosis
Diet: Regular
Driving Restrictions: As prior to admission
Bathing Restrictions: None
Referrals:
Abebe Jordan DO [Family Provider, Family Practice] - in less than 1 week
Amado Rasheed MD [Active, Pulmonary Medicine] - in two to four weeks
Referral Note: Full PFTs on day of office visit
Regina Rg MD [Active, Oncology] - in three to four weeks
Additional Discharge Medication Instructions: New start Eliquis:
Take 10mg twice a day through 06/09/25; on 06/10/25 start 5mg twice a day
Prescriptions:
New
Eliquis 5 mg Tablet
5 mg PO BID Qty: 70 0RF
Rx Instructions:
Take 2 tabs (10mg) twice a day through evening 06/09/25. Take 1 tab (5mg) twice a day starting morning 06/10/25
Continued
amlodipine-benazepril 5-10 mg capsule
1 cap PO DAILY
Discharge Orders:
Discharge Patient (As Directed); Ordered 06/03/25
Ordered By: Keila Cintron
Discharge Date and Time
Print Language: AZERI
--- NOTE | 2025-06-03 12:40 | CM ---
Patient for discharge home today
CM consulted for advanced directive. Discussed w/ patient and spouse, agreeable to receive AD packet before they leave
Plan: Home, no needs
[2025-06-03 15:22] VITALS: BP 122/77
[2025-06-06 02:02] LABS: Beta-2-Glycoprotein I Ab. IgG <10 SGU (<=20); Beta-2-Glycoprotein I Ab. IgM <10 SMU (<=20)
== END 2025-06-03 17:29 | disposition home or self-care (01) | DRG 176 ==
LOC: 1 ACUTE 07:21
PROVIDERS: Emergency Medicine; Internal Medicine; Nurse Practitioner Acute Care; ADMITTING PHYSICIAN Hospitalist; ATTENDING PHYSICIAN Student in an Organized Health Care Education/Training Program; CONSULT PHYSICIAN Internal Medicine Critical Care Medicine; CONSULT PHYSICIAN Internal Medicine Hematology & Oncology; EMERGENCY PHYSICIAN Emergency Medicine; FAMILY PHYSICIAN Family Medicine
PROC: 5A09357 Assistance with Respiratory Ventilation, Less than 24 Consecutive Hours, Continuous Positive Airway Pressure (ICD-10-PCS; 2025-06-02)
DX: I26.94 Multiple subsegmental thrombotic pulmonary emboli without acute cor pulmonale (principal); E72.12 Methylenetetrahydrofolate reductase deficiency; I82.442 Acute embolism and thrombosis of left tibial vein; I26.99 Other pulmonary embolism without acute cor pulmonale; I10 Essential (primary) hypertension; G47.33 Obstructive sleep apnea (adult) (pediatric); R16.2 Hepatomegaly with splenomegaly, not elsewhere classified; Z11.52 Encounter for screening for COVID-19; Z86.16 Personal history of COVID-19; Z79.899 Other long term (current) drug therapy; Z86.711 Personal history of pulmonary embolism
CPT/HCPCS: 71046; 71275; 80048; 80053; 83090; 84484; 85025; 85610; 85613; 85730; 86146; 86147; 87811; 93005; 93306; 93970; 94660; Q9967